=== PATIENT | female | born 1985 | race African-American/Black ===

== ENCOUNTER 2024-01-20 17:19 | Emergency (ER) | payer OTHER ==
[2024-01-20 17:45] VITALS: RESP 18; BMI 36.3
[2024-01-20 18:32] LABS: EPI CELLS 19 /uL (0-25.1); HYALINE CASTS 0 /uL (0-3.1); URINE APPEARANCE CLEAR; URINE BACTERIA 349 /uL (0-1359); URINE BILIRUBIN NEGATIVE (NEGATIVE); URINE COLOR YELLOW; URINE GLUCOSE (UA) NEGATIVE (NEGATIVE); URINE KETONE TRACE (NEGATIVE); URINE LEUK ESTERASE NEGATIVE (NEGATIVE); URINE NITRITE NEGATIVE (NEGATIVE); URINE PROTEIN NEGATIVE (NEGATIVE); URINE RBC 13 /uL (0-23.9); URINE UROBILINOGEN 0.2 mg/dL (0.2-1.0); URINE WBC 13 /uL (0-25.8)
[2024-01-20 19:46] VITALS: BP 107/66; PULSE 98; TEMP 98.5
== END 2024-01-20 20:45 | disposition home or self-care (01) ==
LOC: JER 17:19
DX: F69 Unspecified disorder of adult personality and behavior (principal); R41.82 Altered mental status, unspecified
CPT/HCPCS: 81003; 87086; 99283-25